=== PATIENT | male | born 1970 ===

== ENCOUNTER 2018-09-10 13:29 | Emergency (ER) | payer OTHER ==
[2018-09-10] MEDS ORDERED: IPRATROPIUM BROM 0.5MG/2.5ML ONE (15:23)
[2018-09-10] MEDS ORDERED: ALBUTEROL 2.5 MG/3 ML NEB SOL ONE (15:23)
--- NOTE | 2018-09-10 16:18 | RAD REPORT ---
EXAM DESCRIPTION: RAD - Chest Pa And Lat (2 Views) - 09/10/2018 4:08 pm CLINICAL HISTORY: Persistent cough COMPARISON: None. TECHNIQUE: PA and lateral views of the chest were obtained. FINDINGS: The lungs are clear. Heart size is normal and central vasculature is within normal limit s. No pleural effusion or pneumothorax seen. No acute bony finding noted. No aortic abnormality. IMPRESSION: No acute cardiopulmonary process.
--- NOTE | 2018-09-10 16:20 | EDPHYS ---
Physician Documentation [facility] Name: Alex Thomas Age: 48 yrs Sex: Male : 1970 Arrival Date: 09/10/2018 Time: 13:32 Bed 12 Private MD: Kvng Mathur R ED Physician Sunil Piedra HPI: 09/10 16:40 This 48 yrs old Unknown Male presents to ER via Ambulatory with complaints of Cough. kb 16:40 The patient or guardian reports cough, that is constant, described as moderate, with no kb sputum. Onset: The symptoms/episode began/occurred 15 day(s) ago. Severity of symptoms: At their worst the symptoms were moderate, in the emergency department the symptoms are unchanged. Modifying factors: The symptoms are alleviated by nothing, the symptoms are aggravated by nothing. Associated signs and symptoms: The patient has no apparent associated signs or symptoms. The patient has not experienced similar symptoms in the past. The patient has not recently seen a physician. Historical: - Allergies: 14:04 No Known Allergies; ss - PMHx: 14:04 None; ss - Immunization history:: Adult Immunizations up to date. - Social history:: Smoking status: Patient/guardian denies using tobacco. - Ebola Screening: : Patient denies exposure to infectious person Patient denies travel to an Ebola-affected area in the 21 days before illness onset. ROS: 16:39 Constitutional: Negative for fever, chills, and weight loss, Cardiovascular: Negative kb for chest pain, palpitations, and edema, Abdomen/GI: Negative for abdominal pain, nausea, vomiting, diarrhea, and constipation, Back: Negative for injury and pain, MS/Extremity: Negative for injury and deformity, Skin: Negative for injury, rash, and discoloration, Neuro: Negative for headache, weakness, numbness, tingling, and seizure. 16:39 Respiratory: Positive for cough, with no reported sputum, Negative for dyspnea on exertion, hemoptysis, orthopnea, pleurisy, shortness of breath, sputum production, wheezing. Exam: 16:39 Constitutional: This is a well developed, well nourished patient who is awake, alert, kb and in no acute distress. Head/Face: Normocephalic, atraumatic. ENT: Nares patent. No nasal discharge, no septal abnormalities noted. Tympanic membranes are normal and external auditory canals are clear. Oropharynx with no redness, swelling, or masses, exudates, or evidence of obstruction, uvula midline. Mucous membranes moist. Neck: Trachea midline, no thyromegaly or masses palpated, and no cervical lymphadenopathy. Supple, full range of motion without nuchal rigidity, or vertebral point tenderness. No Meningismus. Chest/axilla: Normal chest wall appearance and motion. Nontender with no deformity. No lesions are appreciated. Cardiovascular: Regular rate and rhythm with a normal S1 and S2. No gallops, murmurs, or rubs. Normal PMI, no JVD. No pulse deficits. Respiratory: Lungs have equal breath sounds bilaterally, clear to auscultation and percussion. No rales, rhonchi or wheezes noted. No increased work of breathing, no retractions or nasal flaring. Abdomen/GI: Soft, non-tender, with normal bowel sounds. No distension or tympany. No guarding or rebound. No evidence of tenderness throughout. Skin: Warm, dry with normal turgor. Normal color with no rashes, no lesions, and no evidence of cellulitis. MS/ Extremity: Pulses equal, no cyanosis. Neurovascular intact. Full, normal range of motion. Neuro: Awake and alert, GCS 15, oriented to person, place, time, and situation. Cranial nerves II-XII grossly intact. Motor strength 5/5 in all extremities. Sensory grossly intact. Cerebellar exam normal. Normal gait. Vital Signs: 14:04 BP 152 / 117; Pulse 88; Resp 16; Temp 98.4(TE); Pulse Ox 97% on R/A; Weight 85 kg; ss Height 5 ft. 6 in. (167.64 cm); Pain 0/10; 14:04 Body Mass Index 30.25 (85.00 kg, 167.64 cm) ss MDM: 14:55 Patient medically screened. kb 16:40 Data reviewed: vital signs, nurses notes. Data interpreted: Pulse oximetry: on room air kb is 97 %. Interpretation: normal. Counseling: I had a detailed discussion with the patient and/or guardian regarding: the historical points, exam findings, and any diagnostic results supporting the discharge/admit diagnosis, radiology results, the need for outpatient follow up, a family practitioner, to return to the emergency department if symptoms worsen or persist or if there are any questions or concerns that arise at home. 09/10 15:05 Order name: Chest Pa And Lat (2 Views) XRAY; Complete Time: 16:19 kb Administered Medications: 15:13 Drug: AtroVENT Aerosol 0.5 mg Route: Inhalation; iw 15:14 Drug: Albuterol 2.5 mg Route: Inhalation; iw Disposition: 09/11 07:01 Co-signature as Attending Physician, Sunil Piedra MD I agree with the assessment and cherrie plan of care. Disposition: 09/10/18 16:19 Discharged to Home. Impression: Cough. - Condition is Stable. - Discharge Instructions: Cough, Adult, [id number]. - Prescriptions for Albuterol Sulfate 90 mcg/actuation - inhale 1-2 puff by INHALATION route every 4-6 hours; 1 Inhaler. Tessalon Perles 100 mg Oral Capsule - take 1 capsule by ORAL route every 8 hours As needed; 15 capsule. - Medication Reconciliation Form, Thank You Letter, Antibiotic Education, Prescription Opioid Use form. - Follow up: Emergency Department; When: As needed; Reason: Worsening of condition. Follow up: Private Physician; When: 2 - 3 days; Reason: Recheck today's complaints, Continuance of care, Re-evaluation by your physician. Signatures: Dispatcher [employer] Margaret Silva, SHORER-C SHORER-Sunil Roman MD MD cha Williams, Irene, RN RN iw Smirch, Shelby, RN RN ss Corrections: (The following items were deleted from the chart) 09/10 16:33 16:19 09/10/2018 16:19 Discharged to Home. Impression: Cough. Condition is Stable. iw Forms are Medication Reconciliation Form, Thank You Letter, Antibiotic Education, Prescription Opioid Use. Follow up: Emergency Department; When: As needed; Reason: Worsening of condition. Follow up: Private Physician; When: 2 - 3 days; Reason: Recheck today's complaints, Continuance of care, Re-evaluation by your physician. kb
--- NOTE | 2018-09-10 16:20 | ER ---
Nurse's Notes [facility] Name: Alex Thomas Age: 48 yrs Sex: Male : 1970 Arrival Date: 09/10/2018 Time: 13:32 Bed 12 Private MD: Kvng Mathur R Diagnosis: Cough Presentation: 09/10 14:01 Presenting complaint: Patient states: dry, hacking cough that began 15 days ago. Denies ss fever. Transition of care: patient was not received from another setting of care. Onset of symptoms was August 2018. Risk Assessment: Do you want to hurt yourself or someone else? Patient reports no desire to harm self or others. Initial Sepsis Screen: Does the patient meet any 2 criteria? No. Patient's initial sepsis screen is negative. Does the patient have a suspected source of infection? No. Patient's initial sepsis screen is negative. Care prior to arrival: None. 14:01 Method Of Arrival: Ambulatory ss 14:01 Acuity: KIRK 5 ss Historical: - Allergies: 14:04 No Known Allergies; ss - PMHx: 14:04 None; ss - Immunization history:: Adult Immunizations up to date. - Social history:: Smoking status: Patient/guardian denies using tobacco. - Ebola Screening: : Patient denies exposure to infectious person Patient denies travel to an Ebola-affected area in the 21 days before illness onset. Screenin:23 Abuse screen: Denies threats or abuse. Denies injuries from another. Nutritional iw screening: No deficits noted. Tuberculosis screening: No symptoms or risk factors identified. Fall Risk None identified. Assessment: 14:01 General: Appears in no apparent distress. comfortable, Behavior is calm, cooperative. ss Pain: Denies pain. Neuro: Level of Consciousness is awake, alert, obeys commands, Oriented to person, place, time, situation. Cardiovascular: Capillary refill < 3 seconds is brisk in bilateral fingers. Respiratory: Airway is patent Respiratory effort is even, unlabored, Respiratory pattern is regular, symmetrical. Respiratory: Reports cough that is dry, hacking, persistent since > 15 days. 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 Breath sounds are clear bilaterally. GI: No signs and/or symptoms were reported involving the gastrointestinal system. : No signs and/or symptoms were reported regarding the genitourinary system. EENT: Oral mucosa is moist. Throat is clear. Derm: Skin is intact, is healthy with good turgor, Skin is dry, Skin is pink, warm \T\ dry. normal. Musculoskeletal: Circulation, motion, and sensation intact. Range of motion: intact in all extremities, Swelling absent. 15:23 General: Appears in no apparent distress. Pain: Denies pain. Neuro: Level of iw Consciousness is awake, alert, obeys commands, Moves all extremities. Full function. Cardiovascular: Patient's skin is warm and dry. Respiratory: Reports shortness of breath on exertion cough that is non-productive, dry, hacking, Respiratory effort is even, unlabored, Respiratory pattern is regular. Derm: Skin is intact, is healthy with good turgor. Musculoskeletal: Range of motion: intact in all extremities. 16:33 Reassessment: Patient appears in no apparent distress at this time. Patient and/or iw family updated on plan of care and expected duration. Pain level reassessed. Patient is alert, oriented x 3, equal unlabored respirations, skin warm/dry/pink. Vital Signs: 14:04 BP 152 / 117; Pulse 88; Resp 16; Temp 98.4(TE); Pulse Ox 97% on R/A; Weight 85 kg; ss Height 5 ft. 6 in. (167.64 cm); Pain 0/10; 14:04 Body Mass Index 30.25 (85.00 kg, 167.64 cm) ss ED Course: 13:32 Patient arrived in ED. mr 13:33 Kvng Mathur MD is Private Physician. mr 14:03 Triage completed. ss 14:04 Arm band placed on right wrist. ss 14:05 Patient has correct armband on for positive identification. iw 14:55 Lin Seaman, RN is Primary Nurse. iw 14:55 Margaret Roy FNP-C is PHCP. kb 14:55 Sunil Piedra MD is Attending Physician. kb 15:23 No provider procedures requiring assistance completed. Patient did not have IV access iw during this emergency room visit. 16:07 Chest Pa And Lat (2 Views) XRAY In Process Unspecified. EDMS Administered Medications: 15:13 Drug: AtroVENT Aerosol 0.5 mg Route: Inhalation; iw 15:14 Drug: Albuterol 2.5 mg Route: Inhalation; iw Outcome: 16:19 Discharge ordered by MD. clayton 16:33 Discharged to home ambulatory. iw 16:33 Condition: good 16:33 Discharge instructions given to patient, Instructed on discharge instructions, follow up and referral plans. medication usage, Demonstrated understanding of instructions, follow-up care, medications, Prescriptions given X 2. 16:33 Patient left the ED. iw Signatures: Dispatcher [employer] EDMS Margaret Roy, ARETHA FIGUEROA-Sandhya Manriquez Irene, RN RN iw Dora Fowler RN RN ss
== END 2018-09-10 16:33 | disposition home or self-care (01) ==
LOC: ER 13:29
DX: R05 Cough (principal)
CPT/HCPCS: 71046; 99284